=== PATIENT | male | born 1960 | race Caucasian/White ===

== ENCOUNTER 2025-03-14 15:02 | Emergency (ER) | payer MEDICARE, OTHER, SELFPAY ==
[2025-03-14 15:07] VITALS: BP 97/77
[2025-03-14 15:17] VITALS: BMI 23.1
--- NOTE | 2025-03-14 15:29 | ED.GENMED ---
History of Present Illness
General
Chief Complaint: Heart Rate Problem
Source: patient
Time Seen by Provider: 03/14/25 15:04
History of Present Illness
History of Present Illness:
This patient is a 64-year-old male who states he was referred to the emergency department from his psychiatrist office after his psychiatrist recognized that his heart rate was low. Patient denies any physical complaints. He does state that he was
recently referred to a solid tire tuber machine operator given that his blood pressure was low and just started a prescription for midodrine. He is due to take a dose at 3 PM today. He denies chest pain, dizziness, dyspnea, abdominal pain, nausea, vomiting, fever,
chills, or other complaints.
Past History
Past History
ED Past Medical History: HTN, Hypercholesterolemia, Psychiatric and Other (Glaucoma, sleep apnea)
Social History
Tobacco: Non-smoker
Alcohol: Occasional
Personal:
Living: with family
Phy Exam
Physical Exam
Physical Exam:
GENERAL: Alert , in no apparent distress
EYE: pupils equal and reactive
NECK: Supple, no significant adenopathy.
ENT: o/p clr, mmm.
CARDIAC: Regular rate and rhythm,.
LUNGS: Clear breath sounds bilaterally, no acute respiratory distress, no wheezes/rales/rhonchi
ABDOMEN: Soft, without focal tenderness, no r/g, no cvat
NEUROLOGICAL: Alert and oriented, no focal neuro deficits
SKIN: Warm and dry, skin intact.
MUSCULOSKELETAL: No edema, well perfused.
PSYCH: Normal and appropriate interaction.
Course
Orders/Labs/Results
Orders:
Orders
03/14/25 15:03
EKG [Electrocardiogram (*1)] Urgent
Reason for Study: Bradycardia / Tachycardia
03/14/25 15:04
EKG- Treatment ONCE
03/14/25 15:27
Pulse Ox/cont/shift [RESP] Stat
Quantity: 1
03/14/25 15:28
Cardiac Monitoring- Treatment ONCE
CR Chest Portable - 1 View Urgent
Comment:
Reason For Exam: bradycardia
Reason Study Needs to be Portable: Patient Unstable
03/14/25 15:31
Complete Blood Count/No Diff Urgent
Comprehensive Metabolic Panel Urgent
Lyme Progressive Urgent
Troponin I Urgent
03/14/25 15:39
Midodrine [ProAmatine] 10 mg PO NOW STA
Abnormal Lab Results
03/14/25
15:31
WBC 4.5 L 10^3/uL
(4.8-10.8)
RBC 4.66 L 10^6/uL
(4.70-6.10)
MPV 11.1 H fL
(7.4-10.4)
BUN 21 H mg/dl
(9-20)
Glucose 103 H mg/dl
(70-99)
03/14/25 15:31
03/14/25 15:31
Vital Signs
Initial and Last Documented VS:
Initial Vital Signs
Pulse Resp BP Pulse Ox
44 16 97/77 97
03/14/25 15:07 03/14/25 15:07 03/14/25 15:07 03/14/25 15:07
Last Documented Vital Signs
Pulse Resp BP Pulse Ox
45 22 97/77 97
03/14/25 15:19 03/14/25 15:19 03/14/25 15:58 03/14/25 15:33
*Pulse Oximetry
SaO2: 97
Oxygen Mode of Delivery: Room air
Update Note
Update Note:
Patient presents to the Emergency Department with bradycardia
Number and Complexity of Problems Addressed at the Encounter
� Chronic conditions affecting care:
� Acute Exacerbation and/or Progression of Chronic Illness:
� Differential Diagnosis includes: But not limited to medication effect, Lyme disease, electrolyte disorder, heart block, etc. etc.
Amount and/or Complexity of Data to be Reviewed and Analyzed
� I performed an independent evaluation of and my interpretation is:
EKG: Read by me, bradycardia, no specific heart block noted, no acute ischemia
CT:
Xrays: Chest x-ray read by me NAD
Laboratory Studies: Generally unremarkable
Other:
� Review of other/old records reveals:
� Clinical information was obtained by an independent historian:
� Prescriptions/Medications Considered but not given:
� Further testing considered but not performed:
Risk of Complications and/or Morbidity or Mortality of Patient Management
� Social determinants of health affecting care:
� Discussion with other providers (PCP, Hospitalists, Consultants, etc):
� Escalation of care including admission/observation vs risk of discharge considered: Case discussed with patient's primary care office and then with patient's solid tire tuber machine operator Dr. Byrnes. Patient was seen by the solid tire tuber machine operator on January
and at that time had a heart rate in the 40s with a blood pressure of 78/50. He was asymptomatic at that time. He had a workup which was unremarkable and was started on midodrine, 10 mg twice daily. Patient has been compliant with this
medicine. Dr. Byrnes does not feel that patient needs any intervention/pacemaker given that he is asymptomatic with this bradycardia, no specific heart block noted, and his heart rate appropriately increases with walking. Recommends discharge,
continue midodrine, will see in follow-up
ED Attending Note
-
Portions of this chart may have been created with voice recognition software.� Occasional wrong word or��sound alike� substitutions may have occurred due to the inherent limitations of voice recognition software.
Discharge Plan
Departure
Patient Disposition: Home (Routine Discharge)
Date of Disposition: 03/14/25
Time of Disposition: 16:16
Patient with high blood pressure during this ER visit?: No
Condition: Good
Discharge Problem:
Bradycardia
Instructions: Bradycardia
Activity Restrictions/Additional Instructions:
PLEASE SEE YOUR CLINIC LICENSED PRACTICAL NURSE IN CLOSE FOLLOW-UP IN ABOUT A WEEK. IF YOU DEVELOP ANY LIGHTHEADEDNESS, DIZZINESS, NAUSEA, CHEST PAIN, PALPITATIONS, SHORTNESS OF BREATH, WEAKNESS OR OTHER WORRISOME SIGNS, PLEASE RETURN TO THE ER IMMEDIATELY!
Interventions
Interventions:
*Risk Screen - Suicide Last Done: 03/14/25 15:28
*General Assessment Last Done: 03/14/25 15:27
*Neglect/Abuse Screening Last Done: 03/14/25 15:28
*ED- Fall Risk Assessment Last Done: 03/14/25 15:27
*ED COVID-19 Vaccine History Last Done: 03/14/25 15:27
Discharge Date and Time
Print Language: ROMANIAN
[2025-03-14 15:43] LABS: Hematocrit 40.8 % (39.0-52.0); Hemoglobin 14.0 g/dL (13.0-18.0); Mean Corp Hgb Conc. 34.3 g/dL (33.0-37.0); Mean Corpuscular Volume 87.6 fL (80.0-94.0); Platelet Count 196 10^3/uL (130-400); Red Cell Dist. Width 12.6 % (11.5-14.5)
[2025-03-14 15:57] LABS: ALT (SGPT) 18 U/L (0-50); AST (SGOT) 21 U/L (17-59); Albumin 4.0 g/dl (3.5-5.0); Alkaline Phosphatase 74 U/L (38-126); Blood Urea Nitrogen 21 mg/dl (9-20); Calcium 10.0 mg/dl (8.4-10.2); Carbon Dioxide 28 mmol/L (22-30); Chloride 107 mmol/L (98-107); Estimated Creatinine Clearance 68 ml/min; Glucose 103 mg/dl (70-99); Potassium 4.3 mmol/L (3.5-5.1); Sodium 141 mmol/L (135-145); Total Protein 6.6 g/dl (6.3-8.2); eGFR > 60.00
[2025-03-14 16:00] VITALS: BP 101/73
[2025-03-14 16:07] LABS: Troponin I < 0.012 ng/ml
[2025-03-18 13:36] LABS: Lyme Antibody Screen, EIA Negative (Negative)
== END 2025-03-14 17:00 | disposition home or self-care (01) ==
LOC: EMR 15:02
PROVIDERS: EMERGENCY PHYSICIAN Emergency Medicine; FAMILY PHYSICIAN Family Medicine
DX: R00.1 Bradycardia, unspecified (principal); I10 Essential (primary) hypertension; E78.00 Pure hypercholesterolemia, unspecified; G47.30 Sleep apnea, unspecified
CPT/HCPCS: 99285; 71045; 80053; 84484; 85027; 86618; 93005